=== PATIENT | female | born 1985 ===

== ENCOUNTER 2020-11-30 19:00 | Outpatient (CLI) | payer OTHER | END 2020-11-30 19:01 | disposition home or self-care (01) | LOC: SLEEPLAB 19:00 | PROVIDERS: ATTEND Family Medicine | DX: G47.33 Obstructive sleep apnea (adult) (pediatric) (principal); R53.83 Other fatigue; R06.83 Snoring | CPT/HCPCS: 95810 ==

== ENCOUNTER 2021-01-06 19:00 | Outpatient (CLI) | payer OTHER | END 2021-01-06 19:01 | disposition home or self-care (01) | LOC: SLEEPLAB 19:00 | PROVIDERS: ATTEND Family Medicine | DX: G47.33 Obstructive sleep apnea (adult) (pediatric) (principal); R06.83 Snoring; R53.83 Other fatigue; G47.00 Insomnia, unspecified; E66.9 Obesity, unspecified; Z68.22 Body mass index [BMI] 22.0-22.9, adult | CPT/HCPCS: 95811 ==